=== PATIENT | male | born 1955 | race Caucasian/White ===

== ENCOUNTER → 2016-09-20 | Outpatient (CLI) | payer SELFPAY ==
[~2016-09-20] MED LIST: COQ-10100 MG PO; FISH OIL 1,0001 EAC1 PO; FISH OIL1000 MG PO; LIPITOR40 MG PO; MULTI VITAMIN1 EACH PO; NORCO 5-325 MG1 TAB PO; NORCO 5-325 TA1 EACH PO; TUMS REGULAR ST1 TAB PO; VITAMIN B COMP1 EACH PO; VITAMIN C1000 MG PO; XYLOCAINE 2%20 MG/ML; [UNRECOGNIZED DRUG - OTHER] PO
== END | disposition disaster alternative care site (69) ==
LOC: GRAD 14:34
DX: C61 Malignant neoplasm of prostate (principal)